=== PATIENT | female | born 1970 ===

== ENCOUNTER → 2022-04-01 08:56 | Outpatient (BNVA) | payer OTHER, SELFPAY | PROVIDERS: PCP Internal Medicine; Visit Provider Dietitian, Registered | DX: E11.9 Type 2 diabetes mellitus without complications (principal) | CPT/HCPCS: 97803 ==

== ENCOUNTER → 2022-06-30 10:22 | Outpatient (BNVA) | payer OTHER, SELFPAY | PROVIDERS: PCP Internal Medicine; Visit Provider Dietitian, Registered | DX: E11.9 Type 2 diabetes mellitus without complications (principal) | CPT/HCPCS: 97803 ==

== ENCOUNTER → 2022-09-29 13:58 | Outpatient (BNVA) | payer OTHER, SELFPAY | PROVIDERS: PCP Internal Medicine; Visit Provider Dietitian, Registered | DX: E11.9 Type 2 diabetes mellitus without complications (principal) | CPT/HCPCS: 97803 ==

== ENCOUNTER 2023-03-30 14:16 | Outpatient (AMB) | payer OTHER, SELFPAY ==
[2023-03-30 14:52] VITALS: BMI 25.6
--- NOTE | 2023-03-30 14:52 | A.OFFVIS_ITS ---
Intake VS Expanded 03/30/23 14:52 Height 5 ft 5 in Weight 153 lb 10.595 oz BMI 25.6 Intake Visit Reasons: T2DM HPI Nutrition Presentation Details Pt presents for MNT f/u for T2DM Pt reports most recent A1 c at 6.1 % 01/14/2023 Pt reports starting to get into an exercise routine , biking 30 minutes daily Tries high fiber foods and trying high fiber recipes. Pt reports following healthy plate method, doing well Including omega 3 fatty acids 2-3 x/d (fish, seeds, nuts) Fruits/d 1-3 nons tarchy ve-2 serving /d protein foods 6-10 oz/d (including vegetarian sources of protein starches 15 serving - choosing whole grains fluids: water, soup , milk, dilutes juices 60 -72 oz/d dairy: mostly cheese Most Recent Diabetes Results: No Data to Display Assessment & Plan Assessment & Plan (1) T2DM (type 2 diabetes mellitus): Code(s): E11.9 - Type 2 diabetes mellitus without complications Plan: Educate Pt on 1500 - 1600 lo meal plan ? Used wt : 69 kg Est kcal as per MSJ: 1600 (40% carb, 30% fat/prot) Est fluid needs: 1700 ml/d (25 ml/kg bw) Rec fiber: increase to 8-10 g per day and gradually increase to 25 g/d or as tolerated Rec Na: < 2000 mg /d Educate patient on: (R= Reviewed, V = verbalizes understanding N/R= Needs review N/A= not applicable) * Food sources of carbohydrates and serving adequate serving sizes : R * Difference between complex carbohydrates and simple carbohydrates, role of fiber: R * Differences between fats (MUFA/PUFA/saturated fats, trans fats) and food sources of various fats: R * Food sources of sodium and salt and healthy modifications for heart health and kidney health: R * Vitamins and minerals: R * How to interpret food labels: R (carbs, fiber, prot, sodium) * Healthy Plate method concept: R V * Physical activity: benefits and precaution: R Patient Instructions: Continue following healthy plate method Consider taking a daily mvi referred to [facility] support group Coding Level of Care Code Nutr Indiv Subseq (06404) Diagnoses T2DM (type 2 diabetes mellitus) E11.9 Time Spent (min) 30
== END 2023-03-30 15:30 | disposition home or self-care (01) ==
PROVIDERS: PCP Internal Medicine; Visit Provider Dietitian, Registered
DX: E11.9 Type 2 diabetes mellitus without complications (principal)

== ENCOUNTER → 2023-03-30 14:16 | Outpatient (BNVA) | payer OTHER, SELFPAY | PROVIDERS: Visit Provider Dietitian, Registered | DX: E11.9 Type 2 diabetes mellitus without complications (principal); Z71.3 Dietary counseling and surveillance | CPT/HCPCS: 97803 ==

== ENCOUNTER 2023-09-29 14:16 | Outpatient (AMB) | payer OTHER, SELFPAY ==
[2023-09-29 14:24] VITALS: BMI 25.0
--- NOTE | 2023-09-29 14:24 | A.OFFVIS_ITS ---
Intake VS Expanded 09/29/23 14:24 Height 5 ft 5 in Weight 150 lb 5.684 oz BMI 25.0 Intake Visit Reasons: T2SM HPI Nutrition Presentation Details Pt presents for MNT f/u for T2DM pt reports currently on metformin 500 mg twice/day. Pt reports BG ranges from 90s to 100s . pt reports doing well, has questions regarding hyperlipidemia. Most Recent Diabetes Results: No Data to Display Assessment & Plan Assessment & Plan (1) T2DM (type 2 diabetes mellitus): Code(s): E11.9 - Type 2 diabetes mellitus without complications Plan: Educate Pt on 1500 - 1600 lo meal plan ? Used wt : 69 kg Est kcal as per MSJ: 1600 (40% carb, 30% fat/prot) Est fluid needs: 1700 ml/d (25 ml/kg bw) Rec fiber: increase to 8-10 g per day and gradually increase to 25 g/d or as tolerated Rec Na: < 2000 mg /d Educate patient on: (R= Reviewed, V = verbalizes understanding N/R= Needs review N/A= not applicable) * Food sources of carbohydrates and serving adequate serving sizes : R * Difference between complex carbohydrates and simple carbohydrates, role of fiber: R * Differences between fats (MUFA/PUFA/saturated fats, trans fats) and food sources of various fats: R * Food sources of sodium and salt and healthy modifications for heart health and kidney health: R * Vitamins and minerals: R * How to interpret food labels: R (carbs, fiber, prot, sodium) * Healthy Plate method concept: R V * Physical activity: benefits and precaution: R Patient Instructions: include fiber in your diet gradually increase by 3 g per day ( choose a variety of fiber foods: flaxseed milled, Metamucil, fruits/vegetables) Include omega 3 fatty acids in your diet (resume consuming fish at least twice week,nuts, seeds, algare) Reduce on foods high in saturated fats (cheese, pastries, highly processed foods, as example Coding Level of Care Code Nutr Indiv Subseq (65056) Diagnoses T2DM (type 2 diabetes mellitus) E11.9 Time Spent (min) 30
== END 2023-09-29 15:17 | disposition home or self-care (01) ==
PROVIDERS: PCP Internal Medicine; Visit Provider Dietitian, Registered
DX: E11.9 Type 2 diabetes mellitus without complications (principal)

== ENCOUNTER → 2023-09-29 14:16 | Outpatient (BNVA) | payer OTHER, SELFPAY | PROVIDERS: PCP Internal Medicine; Visit Provider Dietitian, Registered | DX: E11.9 Type 2 diabetes mellitus without complications (principal); Z79.84 Long term (current) use of oral hypoglycemic drugs; Z71.3 Dietary counseling and surveillance | CPT/HCPCS: 97803 ==

== ENCOUNTER 2024-04-04 14:29 | Outpatient (AMB) | payer OTHER, SELFPAY ==
[2024-04-04 14:32] VITALS: BMI 25.9
--- NOTE | 2024-04-04 14:32 | A.OFFVIS_ITS ---
VS Expanded 04/04/24 14:32 Height 5 ft 5 in Weight 155 lb 6.814 oz BMI 25.9 Intake Visit Reasons: T2DM/LVM Medication List - Last Reconciled 04/06/[address], LDN atorvastatin 10 mg PO BEDTIME metformin 500 mg PO BID Nutrition Presentation Details: Pt presents for MNT f/u for T2DM Pt reports doing well. Reports bg ranging in 120s in the fasting state on metformin 500 mg twice a day Pt reports having reducing on fiber due to constipation and looking for high fiber recipes to try BS Monitoring Most Recent Diabetes Results: No Data to Display Assessment & Plan Assessment & Plan (1) T2DM (type 2 diabetes mellitus): Code(s): E11.9 - Type 2 diabetes mellitus without complications Category: Medical Plan: Educate Pt on 1500 - 1600 lo meal plan ? Used wt : 69 kg Est kcal as per MSJ: 1600 (40% carb, 30% fat/prot) Est fluid needs: 1700 ml/d (25 ml/kg bw) Rec fiber: increase to 8-10 g per day and gradually increase to 25 g/d or as tolerated Rec Na: < 2000 mg /d Educate patient on: (R= Reviewed, V = verbalizes understanding N/R= Needs review N/A= not applicable) * Food sources of carbohydrates and serving adequate serving sizes : R * Difference between complex carbohydrates and simple carbohydrates, role of fiber: R * Differences between fats (MUFA/PUFA/saturated fats, trans fats) and food sources of various fats: R * Food sources of sodium and salt and healthy modifications for heart health and kidney health: R * Vitamins and minerals: R * How to interpret food labels: R (carbs, fiber, prot, sodium) * Healthy Plate method concept: R V * Physical activity: benefits and precaution: R Patient Instructions: MOnitor blood sugar 2 hours after a meal for self assessment : goal less than 180 or less than 140 for tight glucose control Try adding flaxseed milled to the foods (1 tsp /day and gradually increase to 3 tbsp per day) for fiber (other options, Metamucil one scoop per day) and increase water intake as you increase fiber to prevent constipation. Continue physical activity goal 30 minutes 3-5 times week, more as tolerated Coding Level of Care Code Nutr Indiv Subseq (24322) Diagnoses T2DM (type 2 diabetes mellitus) E11.9 Time Spent (min) 30
== END 2024-04-04 15:06 | disposition home or self-care (01) ==
PROVIDERS: PCP Internal Medicine; Visit Provider Dietitian, Registered
DX: E11.9 Type 2 diabetes mellitus without complications (principal)

== ENCOUNTER → 2024-04-04 14:29 | Outpatient (BNVA) | payer OTHER, SELFPAY | PROVIDERS: PCP Internal Medicine; Visit Provider Dietitian, Registered | DX: E11.9 Type 2 diabetes mellitus without complications (principal); Z71.3 Dietary counseling and surveillance | CPT/HCPCS: 97803 ==

== ENCOUNTER 2024-10-04 08:15 | Outpatient (AMB) | payer OTHER, SELFPAY ==
--- OUTSIDE RECORDS SUMMARY | 2024-10-04 08:24 | XMS_ITS ---
Author Organization [facility] Address [address] [place] [address] Care Team Providers Care Shipping Clerk/Admin Name Role Phone Yamileth Turner Primary Care Provider Radha Crenshaw [phone] REASON FOR VISIT Purchased ActX sport red ot Encounters Encounter Location Date Provider Diagnosis [facility] [address] [place] [address] 06/08/2023 Radha Duran Plan Of Treatment Next Appt Details Provider Name:Radha velasco, 07/03/2025 04:00:00 PM, [address] [place], [address], Progress Notes * Ellen LOVELACEDOB: [birth year] (52 yo F)Acc No.[id number]:06/08/2023 Patient:?Ellen Lovelace :1970???Age:52 Y???Sex:Female Address:[facility] [address], [place], [address] * true * Date:? Generated for Printi ng/Fasonalg/eTransmitting on:?10/04/2024 08:23 AM EDT
--- OUTSIDE RECORDS SUMMARY | 2024-10-04 08:24 | XMS_ITS ---
Author Organization [facility] Address [address] [place] [address] Care Team Providers Care Gravel Weigher Name Role Phone Yamileth Turner Primary Care Provider Radha Crenshaw [phone] REASON FOR VISIT Note to PCP Encounters Encounter Location Date Provider Diagnosis [address] [address] 09/16/2023 Radha Duran Plan Of Treatment Next Appt Details Provider Name:Radha velasco, 07/03/2025 04:00:00 PM, [address] [place], [address], Progress Notes * Ellen LOVELACEDOB: [birth year] (53 yo F)Acc No.[id number]:09/16/2023 Patient:?Ellen Lovelace :1970???Age:53 Y???Sex:Female Address:[facility] [address], [place], [address] * true * Date:? Generated for Printi ng/Fasonalg/eTransmitting on:?10/04/2024 08:24 AM EDT
--- OUTSIDE RECORDS SUMMARY | 2024-10-04 08:24 | XMS_ITS | Patient Health Record ---
[facility] Address [address] [place] [address] Care Team Providers Care Pediatric Psychologist Name Role Phone Yamileth Turner Primary Care Provider Radha Crenshaw Unavailable [phone] Allergies No Known Allergies Results Component Value Reference Range Notes HEMOGLOBIN A1C (GLYCOHEMOGLO BIN) Reviewed date:06/27/2024 04:22:14 PM Interpretation: Performing Lab: Notes/Report: HEMOGLOBIN A1C % (HH) 6.3 Reason For Referral No Information Medications Medication SIG (Take, Route, Frequency, Duration) Notes Start Date End Date Status Norethindrone 0.35 MG 1 tablet Orally Once a day for 28 day(s) Controll Not-Taking metFORMIN HCl 500 MG 2 tablet with a meal Orally Once a day Active Multivitamin Active Atorvastatin Calcium 20 MG as directed Active Immunizations Vaccine Route Administration Date Status Comme nts COVID-19 Pfizer BioNTech Vaccine Unknown 05/16/2021 Administered First Dose: 10/11/20 Second Dose: 11/01/20 Influenza Unknown 02/19/2021 Administered Social History Tobacco Use: Social History Observation Description Date Details (start date - stop date) Never Smoker NA - NA Tobacco Use/Smoking Question Answer Notes Are you a: nonsmoker Alcohol Screen Question Answer Notes Did you have a drink containing alcohol in the p ast year? No Points 0 Interpretation Negative Tobacco use other than smoking: Question Answer Notes Are you an other tobacco user? No Problems Problem Type SNOMED Code ICD Code Onset Dates Problem Status W/U Status Risk Notes Problem [id number] Hallux valgus (acquired), left foot (M20.12) Active confirmed Problem 8609152174 Hallux valgus (acquired), right foot (M20.11) Active confirmed Problem Plantar fasciitis of left foot ([id number]) Plantar fasciitis of left foot (M72.2) Active confirmed Problem [id number] Type 2 diabetes mellitus without complication, without long-term current use of insulin (E11.9) Active confirmed Vital Signs Blood pressure diastolic 79 mm Hg 06/27/2024 Height 5ft5in in 06/27/2024 Blood pressure systolic 123 mm Hg 06/27/2024 Weight 154 lbs 06/27/2024 BMI 25.62 kg/m2 06/27/2024 Encounters Encounter Location Date Provider Diagnosis [facility] [address] [place] [address] 06/27/2024 Radha Duran Type 2 diabetes mellitus without complication, without long-term current use of insulin E11.9 ; Hallux valgus (acquired), right foot M20.11 and Hallux valgus (acquired), left foot M20.12 Assessments Encounter Date Diagnosis (ICD Code) Assessment Notes Treatment Notes Treatment Clinical Notes Section Notes 06/27/2024 Hallux valgus (acquired), right foot (ICD-10 - M20.11) 06/27/2024 Type 2 diabetes mellitus without complication, without long-term current use of insulin (ICD-10 - E11.9) 06/27/2024 Hallux valgus (acquired), left foot (ICD-10 - M20.12) 06/27/2024 Other Patient Educated with: HEEL CORD STRETCHES.pdf (HEEL CORD STRETCHES.pdf) Patient Educated with: RICE THERAPY.pdf (RICE THERAPY.pdf) Plan Of Treatment Next Appt Details Provider Name:Radha Thomas Maggi rod, 07/03/2025 04:00:00 PM, [address] [place], [address], Insurance Providers Payer Name Payer Address Payer Phone Subscriber Number Group Number Insured Name Patient Relationship to Insured Coverage Start Date Coverage End Date [facility] [address] [place] [address] [id number] Ellen Lovelace Self - patient is the insured Medical (General) History Medical History History ICD Code Diabetic type 2 Chicken pox Surgical History Surgery Date(Month/Year) 09/24/2003
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
--- OUTSIDE RECORDS SUMMARY | 2024-10-04 08:24 | XMS_ITS ---
[facility] Address [address] [facility] [place] [address] Care Team Providers Care Glass Science Engineer Name Role Phone Yamileth Turner Primary Care Provider Radha Crenshaw Unavailable [phone] Allergies No Known Allergies REASON FOR VISIT At Risk Footcare Medications Medication SIG (Take, Route, Frequency, Duration) Notes Start Date End Date Status Norethindrone 0.35 MG 1 tablet Orally Once a day for 28 day(s) Controll Not-Taking metFORMIN HCl 500 MG 2 tablet with a meal Orally Once a day Active Multivitamin Active Atorvastatin Calcium 20 MG as directed Active Social History Tobacco Use: Social History Observation Description Date Details (start date - stop date) Never Smoker NA - NA Tobacco Use/Smoking Question Answer Notes Are you a: nonsmoker Tobacco use other than smoking: Question Answer Notes Are you an other tobacco user? No Problems Problem Type SNOMED Code ICD Code Onset Dates Problem Status W/U Status Risk Notes Problem Plantar fasciitis of left foot ([id number]) Plantar fasciitis of left foot (M72.2) Active confirmed Problem [id number] Hallux valgus (acquired), right foot (M20.11) Active confirmed Problem [id number] Hallux valgus (acquired), left foot (M20.12) Active confirmed Vital Signs Height 5ft5in in 06/27/2024 Weight 154 lbs 06/27/2024 BMI 25.62 kg/m2 06/27/2024 Blood pressure systolic 123 mm Hg 06/27/19 25 Blood pressure diastolic 79 mm Hg 025 Encounters Encounter Location Date Provider Diagnosis [facility] [address] [place] [address] 06/27/2024 Radha Duran Type 2 diabetes mellitus without complication, without long-term current use of insulin E11.9 ; Hallux valgus (acquired), right foot M20.11 and Hallux valgus (acquired), left foot M20.12 Assessments Encounter Date Diagnosis (ICD Code) Assessment Notes Treatment Notes Treatment Clinical Notes Section Notes 06/27/2024 Type 2 diabetes mellitus without complication, without long-term current use of insulin (ICD-10 - E11.9) 06/27/2024 Hallux valgus (acquired), right foot (ICD-10 - M20.11) 06/27/2024 Hallux valgus (acquired), left foot (ICD-10 - M20.12) 06/27/2024 Other Patient Educated with: HEEL CORD STRETCHES.pdf (HEEL CORD STRETCHES.pdf) Patient Educated with: RICE THERAPY.pdf (RICE THERAPY.pdf) Plan Of Treatment Treatment Notes Assessment Notes Other Patient Educated wit h: HEEL CORD STRETCHES.pdf (HEEL CORD STRETCHES.pdf) Patient Educated with: RICE THERAPY.pdf (RICE THERAPY.pdf) Next Appt Details Follow Up: 1 Year, Reason: Provider Name:Radha velasco, 07/03/2025 04:00:00 PM, [address] [place] [address], [id number], Progress Notes * Ellen LOVELACEDOB: [birth year] (54 yo F)Acc No.[id number]:06/27/2024 Progress Note Patient:?Ellen LOVELACE Provider:?Radha Duran DPM :1970???Age:54 Y???Sex:Female D ate:06/27/2024 Address:[facility] [address], [place], [id number] Pcp:Yamileth Turner Subjective: * Chief Complaints: * ???At Risk Footcare * HPI: ???At Risk footcare:?Pt States Last PCP Visit:?Date?08/23/2023 ???Foot Pain:?Location:?Great toe joint, B/L.?Duration:?1 year or more.?Aggravated:?no known aggrevating factors.? * ROS:?General/Constitutional:?Nausea?denies, denies, denies.?Vomiting?denies, denies, denies.?Hunger Thirst?admits, admits, admits.?Loss appetite?denies, denies, denies.?Chills?denies, denies, denies.?Fatigue?admits, admits, admits.?Fever?denies, denies, denies.?Night Sweats?admits, admits, admits.?Unexplained weight loss?denies, denies, denies.?Unexplained weight gain?denies, denies, denies.?HEENTM:?Dentures?denies, denies, denies.?Dizziness?denies, denies, denies.?Glasses/contacts?admits, admits, admits.?Retinopathy?denies, denies, denies.?Blurred/double vision?admits, admits, admits.?TMJ?denies, denies, denies.?Discharge/drainage?denies, denies, denies.?Implants?denies, denies, denies.?Sore throat?denies, denies, denies.?Dental implants?denies, denies, denies.?Hard of hearing ?denies, denies, denies.?Difficulty chewing/swallowing/speaking denies, denies, denies.?Nose bleeds?denies, denies, denies.?Sore mouth?denies, denies, denies.?Respiratory:?On Oxygen?denies, denies, denies.?Pneumonia/pleurisy?denies, denies, denies.?Bronchitis?denies, denies, denies.?Emphysema?denies, denies, denies.?Coughing?denies, denies, denies.?Cough blood?denies, denies, denies.?Shortness of breath?admits, admits, admits.?Wheezing?denies, denies, denies.?Cardiovascular:?Pacemaker?denies, denies, denies.?MVP?denies, denies, denies.?WPW?denies, denies, denies.?CHF?denies, denies, denies.?Heart attack?denies, denies, denies.?Septal defect?denies, denies, denies.?Rapid beat denies, denies, denies.?Chest pain ?denies, denies, denies.?Atrial Fib.?denies, denies, denies.?Murmur/Palpitations?denies, denies, denies.?Gastrointestinal:?Hemorrhoids?denies, denies, denies.?Stomach/Abdominal pain?denies, denies, denies.?Dark blood stool?denies, denies, denies.?Irritable bowel ?denies, denies, denies.?Constipation?denies, denies, denies.?Diarrhea?denies, denies, denies.?Hematology:?Swelling?denies, denies, denies.?Clots?denies, denies, denies.?Varicose Veins?denies, denies, denies.?Bruising?denies, denies, denies.?Bleeding problem?denies, denies, denies.?Genitourinary:?Blood urine?denies, denies, denies.?Frequent/Painfu/urination/bladder control?admits, admits, admits.?Kidney stones?denies, denies, denies.?Infection (UTI)?denies, denies, denies.?Nephropathy?denies, denies, denies. sex trans dis (STD)?denies, denies, denies.?Prostate?denies, denies, denies.?Musculoskeletal:?Hammertoes?denies, denies, denies.?Bunions?denies, denies, denies.?Back Pain?admits, admits, admits.?Muscle Cramps/ Resting?admits, admits, admits.?Muscle cramps / walking?denies, denies, denies.?Generalized aches and pains?admits, admits, admits.?Weakness?denies, denies, denies.?Integ.:?Taylor?denies, denies, denies.?Scars?denies, denies, denies.?Corns/calluses?denies, denies, denies.?Ingrown nails?denies, denies, denies.?Painful nails?denies, denies, denies.?Open Sores?denies, denies, denies.?Rashes?denies, denies, denies.?Neurologic:?Difficulty sleeping?denies, denies, denies.?Brain disorder?denies, denies, denies.?Numbness?denies, denies, denies.?Balance trouble?denies, denies, denies.?Confusion?denies, denies, denies.?Fainting/blackouts?denies, denies, denies.?Tingling?denies, denies, denies.?Tremors?denies, denies, denies.? * Medical History:? * Surgical History:? 09/24/2003 * Hospitalization/Major Diagno stic Procedure:?Denies Past Hospitalization * Family History:?Mother: dece ased, Cancer,kidney/liver disease, diagnosed with Other malignant neoplasm of unspecified site, Other specified conditions influencing health status.?Father: .?Maternal Grand Father: heart attack, diagnosed with Diabetic - NIDDM, Unspecified heart disease.?Maternal aunt: foot problems, poor circulation, diagnosed with Other specified conditions influencing health status.?Maternal Grand Mother: diagnosed with Unspecified essential hypertension.? * Social History:?Tobacco Use:?Tobacco Use/Smoking?Are you a:?nonsmoker ?Tobacco use other than smoking?Are you an other tobacco user??No * Medications:?TakingAtorvasta tin Calcium 20 MG Tablet as directed Multivitamin metFORMIN HCl 500 MG Tablet 2 tablet with a meal Orally Once a day Taking Atorvastatin Calcium 20 MG Tablet as directed Taking Multivitamin Taking metFORMIN HCl 500 MG Tablet 2 tablet with a meal Orally Once a day Not- Taking/PRNNorethindrone 0.35 MG Tablet 1 tablet Orally Once a day , Notes to Pharmacist: ControllMedication List reviewed and reconciled with the patientNot-Taking/PRN Norethindrone 0.35 MG Tablet 1 tablet Orally Once a day , Notes to Pharmacist: ControllMedication List reviewed and reconciled with the patient * Allergies:?N.K.D.A.yes[Aller gies Verified] Objective: * Vitals:?Ht: 5ft5in, Wt:154, BMI:25.62, Shoe size: 9.5-10, BP:123/79mm Hg, BS: 105, Ht-cm: 165.1 cm, Wt-k.85 kg. * ???Past Orders: ???Lab:HEMOGLOBIN A1C (GLYCO HEMOGLOBIN) (Order Date - 04/21/2024) (Collection Date & Time - 04/21/2024 04:21 PM) ? Value Reference Range ?HEMOGLOBIN A1C % (HH) 6.3 * Examination: ???Ophthalmology Referral: ?DIABETES EYE EXAM?Procedure Performed:?Yes ?Date of Exam Performed?07/05/2023 ?Findings of Diabetic Eye Exam:?no retinopathy?General Examination: ?GENERAL APPEARANCE:?Reveals a pleasant, alert, well nourished, well developed, well hydrated individual, who demonstrates proper attention to hygene/body habitus, and is in no acute distress.?ORIENTED:?person, place, and time.?FOOT EXAM:?Lower Extremity Neurological Exam performed:?Yes ?Visual exam of foot performed:?Yes ?Date?06/27/2024 ?Sensory testing performed:?sensations normal ?Pedal pulse taking performed:?2+?Neurological: ?SENSORY:?Neurological exam reveals intact sensorium, pain sensation normal, vibration sensation intact, pinprick sensation is normal in the lower extremities, Pt denies, anesthesia, burning, paresthesia, tingling, B/L.?Vascular: ?DP PULSES (B):?3/4, B/L.?PT PULSES (B):?3/4, B/L.?CAPILLARY FILL TIME:?immediate, all digits, B/L.?TROPHIC CONDITION-TEXTURE/ELASTICITY/TURGOR/HAIR GROWTH (B):?normal, B/L.?TEMPERTURE GRADIENT (C):?warm to cool, proximal to distal, B/L.?PIGMENTATION:?normal, B/L.?EDEMA (C):?absent, B/L.?Dermatologic: ?SKIN FINDINGS:?Skin exam reveals normal texture, elasticity, and turgor. There are no masses. The interspaces are clear.?Orthopedic: ?MUSCLE STRENGTH:?5/5 all groups in a symmetrical fashion , B/L.?BUNION:?Dorso-Medially prominent 1st MPJ, (-) Pain on palpation, ROM 1st MPJ full,and without pain, or crepitus, B/L.?FOOTWEAR:?good condition.? Assessment: * Assessment: 1.?Hallux valgus (acquired), right foot - M20.11???2.?Type 2 diabetes mellitus without complication, without long-term current use of insulin - E11.9 (Primary)???3.?Hallux valgus (acquired), left foot - M20.12??? Plan: * Treatment: * Procedure Codes:? * Preventive Medicine:? ??Counseling:?Discussion:?-13: Office or other outpatient visit for the evaluation and management of an established patient, which required a medically appropriate history and/or examination and LOW level of DECISION MAKING for: 1 STABLE ACUTE UNCOMPLICATED PROBLEM, 2 OR MORE MINOR PROBLEMS, OR 1 STABLE CHRONIC PROBLEM, THAT POSE(S) A LOW RISK FOR MORBIDITY/MORTALITY. The visit on the day of the encounter encompassed interpreting the data and educating the patient as to the nature of their condition, treatment options available according to their individual PMH, meds, allergies, and overall health/living conditions, as well as any potential risks or complications that may occur from a failure to adhere to, and participate in, the recommended course of therapy. The discussion included a complete verbal, and/or written explanation of the examination results, any x-rays taken, the proposed diagnosis, and outline of the treatment plan. A schedule for future care needs was also explained. The patient verbalized an understanding of the instructions at this time and agreed to be an active participant in their treatment. If the patient should think of any questions or concerns after the visit, I have encouraged the patient to call the office.?Diabetic Footcare:?The Pt. was counseled in great detail on their muscoloskeletal foot and toe deformities which coincide with the dermatological presentations visualized on exam. We discussed how their deformities put the integrity of their feet at risk for potential pedal complications which is what makes accomidative the diabetic shoes and cutomizable inserts medically necessary. We discussed the different shoe and insert treatment types and options, as well as the important advantages for adhering to regularly wearing these accomidative devices daily. The patient was made aware of the fact that a failure in accepting these recommedations may be deleterious, unable to prevent, and disadvantagely result in, many pedal complications such as skin irritation, skin ulceration, infection, and even loss of toe/foot/leg/or even their life. Time was also spent with the patient dispensing and discussing proper diabetic footcare techniques including daily skin moisturization, daily foot inspection for any interruption in skin integrity, open lesions, or sign of infection such as redness/malodor/drainage/swelling as well as daily shoe inspection for the presence of internal foreign bodies and shoe as well as insert wear. Patient questions re: shoes, inserts, and self foot inspections were answered to their satisfaction as the patient verbally confirmed a full understanding of the above information, Diabetic footcare is reviewed with the patient.?Shoe Gear Counseling:?The patient and I reviewed the types of shoes they should be wearing. My recommendation included obtaining a well-fitted shoe with a good supportive, non-foldable nor twistable sole, plenty of toe/room for the forefoot, and proper arch support. Based on todays examination, I recommended the patient look for new shoes, by having their feet professionally measured. We discussed that generally the best time of the day for a shoe fitting is the afternoon. Different shoes types and brands to best match the patients occupation and vocation were discussed. Specific brand selection will be up to the patient, their individual foot condition/deformities, and fit. The patient and I reviewed the standard new shoe break in period by wearing them for a few hours a day while checking for redness or sores as wear time is increased. The patient verbally confirmed to understanding the information discussed.? * Follow Up:?1 Year * Images: * Sign off status: Completed true * Provider:?Radha Duran DPM Date:?12/2024 Generated for Inge bledsoe/Libertad/Darianitting on:?10/04/2024 08:24 AM EDT History and Physical Notes * HPI (History of Present Illness) Category Sub-Category Detail Notes Category Not es At Risk footcare Pt States Last PCP Visit: Date: 4 Foot Pain Location: Great toe joint, B/L Duration: 1 year or more Aggravated: no known aggrevating factors Examination Category Sub-Category Detail Notes Category Not es Neurological SENSORY: Neurological exa m reveals intact sensorium, pain sensation normal, vibration sensation intact, pinprick sensation is normal in the lower extremities, Pt denies, anesthesia, burning, paresthesia, tingling, B/L Dermatologic SKIN FINDINGS: Skin exam reveal s normal texture, elasticity, and turgor. There are no masses. The interspaces are clear Orthopedic BUNION: Dorso-Medially p rominent 1st MPJ, (-) Pain on palpation, ROM 1st MPJ full,and without pain, or crepitus, B/L FOOTWEAR EVALUATION: good condition MUSCLE STRENGTH: 5/5 all groups in a symmetrical fashion , B/L General Examination GENERAL APPEARANCE: Reveals a pleasant, alert, well nourished, well developed, well hydrated individual, who demonstrates proper attention to hygene/body habitus, and is in no acute distress FOOT EXAM: Lower Extremity Neurological Exa m performed:: Yes Visual exam of foot performed:: Yes Date: 06/27/2024 Sensory testing performed:: sensations n ormal Pedal pulse taking performed:: 2+ ORIENTED: person, place, and t redd Ophthalmology Referral DIABETES EYE EXAM Procedure Perform ed:: Yes ?Date of Exam Performed: 07/05/2023 Findings of Diabetic Eye Exam:: no retin opathy Vascular DP PULSES (B): 3/4, B/L PT PULSES (B): 3/4, B/L CAPILLARY FILL TIME: immediate, all digi ts, B/L TEMPERTURE GRADIENT (C): warm to cool, p roximal to distal, B/L TROPHIC CONDITION-TEXTURE/ELASTICITY/TURGOR/HAIR GROWTH (B): normal, B/L EDEMA (C): absent, B/L PIGMENTATION: normal, B/L
--- NOTE | 2024-10-04 08:31 | A.OFFVIS_ITS ---
VS Expanded 10/04/24 08:40 Height 5 ft 5 in Weight 155 lb 6.814 oz BMI 25.9 Intake Visit Reasons: T2DM Nutrition Presentation Details: Pt presents for MNT for T2DM Most recent A1c 6.4% (09/2024) Pt reports finding herself snacking the majority of the time due to work/life schedule Pt has questions regarding water, vitamin, protein BS Monitoring Most Recent Diabetes Results: No Data to Display Assessment & Plan Assessment & Plan (1) T2DM (type 2 diabetes mellitus): Code(s): E11.9 - Type 2 diabetes mellitus without complications Category: Medical Plan: Educate Pt on 1500 - 1600 lo meal plan ? Used wt : 70 kg Est kcal as per MSJ: 1600 (40% carb, 30% fat/prot) Est fluid needs: 2100 ml/d (30 ml/kg bw) Rec fiber: increase to 8-10 g per day and gradually increase to 25 g/d or as tolerated Rec Na: < 2000 mg /d Educate patient on: (R= Reviewed, V = verbalizes understanding N/R= Needs review N/A= not applicable) * Food sources of carbohydrates and serving adequate serving sizes : R * Difference between complex carbohydrates and simple carbohydrates, role of fiber: R * Differences between fats (MUFA/PUFA/saturated fats, trans fats) and food sources of various fats: R * Food sources of sodium and salt and healthy modifications for heart health and kidney health: R * Vitamins and minerals: R * How to interpret food labels: R (carbs, fiber, prot, sodium) * Healthy Plate method concept: R V * Physical activity: benefits and precaution: R Patient Instructions: Aim at having 8-10 cups of fluids per day, choose low sugar/decaf beverages Keep in mind fruits/veg also contain water , Include at least 2 fruits a day and at least 2 vegetables a day have as snack Aim at consuming 60-70 g of protein per day, see list of food options, include lentues/legumes/veg/dairy/yogurts which also have protein Coding Level of Care Code Nutr Indiv Subseq (76609) Diagnoses T2DM (type 2 diabetes mellitus) E11.9 Time Spent (min) 30
[2024-10-04 08:40] VITALS: BMI 25.9
== END 2024-10-04 09:06 | disposition home or self-care (01) ==
LOC: HO.ENCR 08:15
PROVIDERS: PCP Internal Medicine; Visit Provider Dietitian, Registered
DX: E11.9 Type 2 diabetes mellitus without complications (principal)

== ENCOUNTER → 2024-10-04 08:15 | Outpatient (BNVA) | payer OTHER, SELFPAY | PROVIDERS: PCP Internal Medicine; Visit Provider Dietitian, Registered | DX: E11.9 Type 2 diabetes mellitus without complications (principal); Z71.3 Dietary counseling and surveillance | CPT/HCPCS: 97803 ==

== ENCOUNTER 2025-04-05 14:26 | Outpatient (AMB) | payer OTHER, SELFPAY ==
--- NOTE | 2025-04-05 14:32 | A.OFFVIS_ITS ---
VS Expanded 04/05/25 14:33 Height 5 ft 5 in Weight 154 lb 5.177 oz BMI 25.7 Intake Visit Reasons: T2DM, diet control Nutrition Presentation Details: Ppresents for MNT f/u for T2DM Pt reports recently returned from vacation and noticed increased bg in >130 in fasting state Pt wants to resume meal planning, and meal prepping A1c at 6.8 % 11/2024 (gradually increasing) Assessment & Plan Assessment & Plan (1) T2DM (type 2 diabetes mellitus): Code(s): E11.9 - Type 2 diabetes mellitus without complications Category: Medical Plan: Educate Pt on 1500 - 1600 lo meal plan ? Used wt : 70 kg (04/14) Est kcal as per MSJ: 1600 (40% carb, 30% fat/prot) Est fluid needs: 2100 ml/d (30 ml/kg bw) Rec fiber: increase to 8-10 g per day and gradually increase to 25 g/d or as tolerated Rec Na: < 2000 mg /d Educate patient on: (R= Reviewed, V = verbalizes understanding N/R= Needs review N/A= not applicable) * Food sources of carbohydrates and serving adequate serving sizes : R * Difference between complex carbohydrates and simple carbohydrates, role of fiber: R * Differences between fats (MUFA/PUFA/saturated fats, trans fats) and food sources of various fats: R * Food sources of sodium and salt and healthy modifications for heart health and kidney health: R * Vitamins and minerals: R * How to interpret food labels: R (carbs, fiber, prot, sodium) * Healthy Plate method concept: R V * Physical activity: benefits and precaution: R Patient Instructions: Reduce total carbs to less than 160 g per day (distributed throughout the day) choosing high fiber foods see meal ideas discussed and printed Coding Level of Care Code Nutr Indiv Subseq ([id number]) Diagnoses T2DM (type 2 diabetes mellitus) E11.9 Time Spent (min) 30
[2025-04-05 14:33] VITALS: BMI 25.7
--- OUTSIDE RECORDS SUMMARY | 2025-04-05 18:16 | XMS_ITS | Clinical Summary ---
Author Organization [facility] Address [address] [place], [place] [id number] Phone Care Team Providers Care Corrections Counselor Name Role Phone Pcp, Unknown Primary Care Provider Unavailabl e Immunizations Immunization Administration Dates Next Due COVID-19 (Pre-04/12) Pfizer Vaccine, mRNA, PF 05/05/2023 Hepatitis B Adult 02/10/2024, 4,05/31/2013,2012 Tdap 02/17/2013 Social History Tobacco Use Types Packs/Day Years Used Date Smoking Tobacco: Never Assessed Education Answer Date Recorded Are you interested in more education? Not on diaz e 02/11/2024 Are you concerned about learning? Not on file 02/11/2024 No 02/11/2024 No 02/11/2024 Digital Access Answer Date Recorded No 02/11/2024 No 02/11/2024 Reliable internet access at home? Not on file 02/11/2024 Device with a working camera? Not on file Comments Unknown Sex and Gender Information Value Date Recorded Sex Assigned at Not on file Legal Sex Female 10:38 AM EDT Gender Identity Not on file Sexual Orientation Not on file Plan of Treatment Health Maintenance Due Date Last Done Comments LIPID PANEL 1971 DEPRESSION SCREENING 1983 SMOKING Hx and SMOKELESS TOB ACCO SCREENING 1984 HEPATITIS C SCREENING 1989 HIV ONE-TIME SCREENING (18-6 5 YEARS) 1989 PAP SMEAR 1992 MAMMOGRAM 2011 COLOGUARD 2016 COLONOSCOPY 2016 COLORECTAL CANCER SCREENING 2016 FIT TEST 2016 FOBT 2016 SIGMOIDOSCOPY 2016 VIRTUAL COLONOSCOPY 2016 PNEUMOCOCCAL VACCINES (50+ y ears) (1 of 1 - PCV) 2021 ZOSTER VACCINES (1 of 2) 2021 Adult Td,Tdap Booster 02/17/2023 02/17/2013 INFLUENZA VACCINE (#1) 2025 COVID-19 VACCINE (2 - 2024-2 6 season) 2025 05/05/2023 RSV VACCINE (1 - 1-dose 75+ series) 2046 HEPATITIS A VACCINES Aged Out No long er eligible based on patient's age to complete this topic HIB VACCINES Aged Out No longer eligi ble based on patient's age to complete this topic MENINGOCOCCAL VACCINES (ACWY) Aged Out No longer eligible based on patient's age to complete this topic MENINGOCOCCAL VACCINES (B) Aged Out N o longer eligible based on patient's age to complete this topic Medical Devices Not on file Insurance [address] [place], [place] [address] [place] [address] [facility] Care Teams Corrections Counselor Relationship Specialty Start Date End Date Pcp, Unknown PCP - General 02/10/24 Additional Source Comments The information contained in this document represents components of the legal health record. It is not the complete legal health record.[facility]
--- OUTSIDE RECORDS SUMMARY | 2025-04-05 18:16 | XMS_ITS | Patient Health Record ---
Author Organization [facility] Address [address] [place] [address] Care Team Providers [employer] Name Role Phone Yamileth Turner Primary Care Provider Radha Crenshaw Unavailable [phone] Allergies No Known Allergies Results Component Value Reference Range Notes HEMOGLOBIN A1C (GLYCOHEMOGLO BIN) Reviewed date:06/27/2024 04:22:14 PM Interpretation: Performing Lab: Notes/Report: HEMOGLOBIN A1C % (HH) 6.3 Reason For Referral No Information Medications Medication SIG (Take, Route, Frequency, Duration) Notes Start Date End Date Status Norethindrone 0.35 MG 1 tablet Orally Once a day; Duration: 28 day(s) Controll Not-Taking metFORMIN HCl 500 MG 2 tablet with a meal Orally Once a day Active Multivitamin Active Atorvastatin Calcium 20 MG as directed Active Immunizations Vaccine Route Administration Date Status Comme nts Influenza Unknown 02/19/2021 Administered COVID-19 Pfizer BioNTech Vaccine Unknown 05/16/2021 Administered First Dose: 10/11/20 Second Dose: 11/01/20 Social History Tobacco Use: Social History Observation [...] Problem Status W/U Status Risk Notes Problem Acquired hallux valgus (93388551) Hallux valgus (acquired), left foot (M20.12) Active confirmed Problem Acquired hallux valgus (21973571) Hallux valgus (acquired), right foot (M20.11) Active confirmed Problem Plantar fasciitis of left foot (5294921065503334 1) Plantar fasciitis of left foot (M72.2) Active confirmed Problem Type II diabetes mellitus without complication (424029148) Type 2 diabetes mellitus without complication, without long-term current use of insulin (E11.9) Active confirmed Vital Signs Blood pressure diastolic 79 mm Hg 06/27/2024 Height 5ft5in in 06/27/2024 Blood pressure systolic 123 mm Hg 06/27/2024 Weight 154 lbs 06/27/2024 BMI 25.62 kg/m2 06/27/2024 Encounters Encounter Location Date Provider Diagnosis [facility] [address] [place] [address] 06/27/2024 Radha Duran Type 2 diabetes mellitus [...] Provider Name:Radha velasco, 07/03/2025 04:00:00 PM, [address] [place], [address], Insurance Providers Payer Name Payer Address Payer Phone Subscriber Number Group Number Insured Name Patient Relationship to Insured Coverage Start Date Coverage End Date [facility] [address] [place] [phone] [id number] Ellen Lovelace Self - patient is the insured Medical (General) History Medical History History ICD Code Diabetic type 2 Chicken pox Surgical History Surgery Date(Month/Year) 09/24/2003
--- OUTSIDE RECORDS SUMMARY | 2025-04-05 18:16 | XMS_ITS ---
Author Name [facility] Organization Unknown Care Team Organization Name Specialty Phone Email Start Date End [facility] Yamileth Turner Primary Care 04/28/2022 4
== END 2025-04-05 15:20 | disposition home or self-care (01) ==
LOC: HO.ENCR 14:27
PROVIDERS: PCP Internal Medicine; Visit Provider Dietitian, Registered
DX: E11.9 Type 2 diabetes mellitus without complications (principal)

== ENCOUNTER → 2025-04-05 14:26 | Outpatient (BNVA) | payer OTHER, SELFPAY | PROVIDERS: PCP Internal Medicine; Visit Provider Dietitian, Registered | DX: E11.9 Type 2 diabetes mellitus without complications (principal); Z68.25 Body mass index [BMI] 25.0-25.9, adult; Z71.3 Dietary counseling and surveillance | CPT/HCPCS: 97803 ==